=== PATIENT | female | born 1950 | race Caucasian/White ===

== ENCOUNTER 2019-05-09 15:39 | Emergency (ER) | payer OTHER, BC ==
[~2019-05-09] VITALS: Ht 154.9 cm; Wt 80.7 kg
[2019-05-09 15:39] VITALS: BP_SYST 139
[2019-05-09] MEDS ORDERED: KETOROLAC TROMETHAMINE 60 MG/2 ML VIAL IM ONE (16:15)
[2019-05-09 17:51] VITALS: BP_SYST 136
== END 2019-05-09 17:51 | disposition home or self-care (01) ==
LOC: SED 15:39
DX: S00.03XA Contusion of scalp, initial encounter (principal); S20.211A Contusion of right front wall of thorax, initial encounter; I10 Essential (primary) hypertension; E11.9 Type 2 diabetes mellitus without complications; E03.9 Hypothyroidism, unspecified; V89.2XXA Person injured in unspecified motor-vehicle accident, traffic, initial encounter; Y93.89 Activity, other specified; Y92.89 Other specified places as the place of occurrence of the external cause; Y99.8 Other external cause status
CPT/HCPCS: 70450; 71250; 96372; 99285; J1885